=== PATIENT | female | born 1945 | race Caucasian/White ===

== ENCOUNTER → 2018-04-16 | Outpatient (CLI) | payer OTHER ==
--- NOTE | 2018-04-16 14:40 | Diagnostic Imaging Report ---
PROCEDURE:ULTRASOUND GUIDANCE FOR PROCEDURE COMPARISON:Outside mammogram and ultrasound studies from the [facility]. IMPRESSION:Ultrasound was utilized for guidance to perform fine needle aspiration of axillary lymph nodes and core biopsy of 2 breast masses. Andres Mckeon D.O. Dictated by: Andres Mckeon D.O. on 04/16/2018 at 14:50 Electronically approved by: Andres Mckeon D.O. on 04/16/2018 at 14:50
--- NOTE | 2018-04-17 08:21 | Diagnostic Imaging Report ---
THIS REPORT HAS BEEN AMENDED. #[id number] - BXBRADUSRT ULTRASOUND GUIDED BIOPSY: 04/16/2018 PATIENT CONSENT: According to [facility] requirements, a time out was performed, correct site was localized and the patient was consented. PROCEDURE DESCRIPTION: Using sterile technique, 1% Lidocaine local anesthesia, and real time ultrasound guidance, the mass at 9 o'clock 5 cm from the nipple in the right breast was biopsied using a 14 ga core device. Five specimens were submitted for histology. A micromarker was placed at the biopsy site for future reference. A sterile bandage was applied at the entry site. The patient was sent for a post biopsy mammogram with no immediate complications noted. Correlation is made to exams dated: 04/02/2018 mammogram and 04/02/2018 ultrasound - [facility]. IMPRESSION: ULTRASOUND GUIDED BIOPSY Follow-up with ACR/ACS guidelines. Andres eric/armando:04/16/2018 16:52:42 Vp Director Of Creative Strategy: AGUSTINA BROWNE [facility], [facility] [id number] AMENDMENT: 04/25/2018 Andres Mckeon Jr., D.O. The mass at the 9 o'clock position 3-5 cm from the nipple is positive for inflitrating ductal carcinoma. The mass at the 9 o'clock position 7 cm from the nipple is positive for infiltrating carcinoma. Fine needle aspiration biopsies of the abnormal lymph nodes in the right axilla are positive for malignancy.
--- NOTE | 2018-04-17 08:21 | Diagnostic Imaging Report ---
THIS REPORT HAS BEEN AMENDED. #[id number] - [id number] ULTRASOUND GUIDED BIOPSY: 04/16/2018 PATIENT CONSENT: According to [facility] requirements, a time out was performed, correct site was localized and the patient was consented. PROCEDURE DESCRIPTION: Using sterile technique, 1% Lidocaine local anesthesia, and real time ultrasound guidance, the mass at 9 o'clock 3 cm from the nipple in the right breast was biopsied using a 14 ga core device. Four specimens were submitted for histology. A micromarker was placed at the biopsy site for future reference. A sterile bandage was applied at the entry site. The patient was sent for a post biopsy mammogram with no immediate complications noted. Correlation is made to exams dated: 04/02/2018 mammogram and 04/02/2018 ultrasound - [facility]. IMPRESSION: ULTRASOUND GUIDED BIOPSY Follow-up with ACR/ACS guidelines. Andres eric/armando:04/16/2018 16:51:15 Brine Tank Operator: AGUSTINA BROWNE [facility], [facility] [id number] AMENDMENT: 04/25/2018 Andres Mckeon Jr., D.O. The mass at the 9 o'clock position 3-5 cm from the nipple is positive for inflitrating ductal carcinoma. The mass at the 9 o'clock position 7 cm from the nipple is positive for infiltrating carcinoma. Fine needle aspiration biopsies of the abnormal lymph nodes in the right axilla are positive for malignancy.
--- NOTE | 2018-04-17 08:21 | Diagnostic Imaging Report ---
#[id number] - [id number] #UNILATERAL RIGHT DIGITAL DIAGNOSTIC MAMMOGRAM POST-NEEDLE BIOPSY: 04/16/2018 Comparison is made to exams dated: 04/16/2018 ultrasound biopsy, 04/16/2018 ultrasound biopsy - [facility], 04/02/2018 mammogram and 04/02/2018 ultrasound - [facility]. Current study contains 2 films. The tissue of the right breast is predominantly fatty. There are two tissue marker clips present. No significant masses, calcifications, or other findings are seen in the breast. IMPRESSION: HIGHLY SUGGESTIVE OF MALIGNANCY Follow-up with ACR/ACS guidelines. Andres Turbeville Jr. George cw/:04/16/2018 16:55:52 Knotter: Leeann LOPEZ(Analisa)(M), [facility] Mammogram BI-RADS: 5 Highly suggestive of malignancy
== END ==
LOC: US 11:54
PROVIDERS: ATTEND Surgery
DX: N63.10 Unspecified lump in the right breast, unspecified quadrant (principal); C50.211 Malignant neoplasm of upper-inner quadrant of right female breast; C77.3 Secondary and unspecified malignant neoplasm of axilla and upper limb lymph nodes
CPT/HCPCS: 10022; 19083; 19084; 38505; 76942; 77065; 88172; 88173; 88305; A4648 ×2; 88112

== ENCOUNTER → 2018-05-16 | Day surgery (SDC) | payer OTHER ==
[2018-05-12 12:15] LABS: BASOPHILS # (AUTO) 0.1 (0.0-0.1); EOSINOPHILS # (AUTO) 0.2 (0.0-0.4); EOSINOPHILS % 3.2 % (0.0-6.0); HEMATOCRIT 32.8 % (34.2-44.1); HEMOGLOBIN 10.2 g/dL (12.0-16.0); LYMPHOCYTES # (AUTO) 1.7 (1.0-3.2); MEAN CORPUSCULAR HEMOGLOBIN 24.2 pg (28-32); MEAN CORPUSCULAR HGB CONC 31.1 g/dL (31-35); MEAN CORPUSCULAR VOLUME 77.9 fL (81-99); MONOCYTES # (AUTO) 0.6 (0.2-0.8); MONOCYTES % 7.7 % (4.4-11.3); NEUTROPHILS # (AUTO) 4.7 (2.1-6.9); NEUTROPHILS % 64.8 % (38.7-80.0); PLATELET COUNT 354 x10e3/uL (140-360); RED BLOOD COUNT 4.21 x10e6/uL (3.6-5.1); RED CELL DISTRIBUTION WIDTH 14.4 % (11.7-14.4)
[2018-05-12 12:28] LABS: ANION GAP 12.5 mmol/L (8-16); BLOOD UREA NITROGEN 20 mg/dL (7-26); BUN/CREATININE RATIO 25 (6-25); CALCIUM 9.2 mg/dL (8.4-10.2); CARBON DIOXIDE 24 mmol/L (22-29); CHLORIDE 105 mmol/L (98-107); CREATININE, SERUM 0.79 mg/dL (0.57-1.11); EST GLOMERULAR FILTRATION RATE > 60 ML/MIN (60-); GLUCOSE 91 mg/dL (74-118); POTASSIUM 4.5 mmol/L (3.5-5.1); SODIUM 137 mmol/L (136-145)
--- NOTE | 2018-05-12 12:32 | Diagnostic Imaging Report ---
ADDENDUM #1 ADDENDUM: Reason for exam: Pre-operative chest radiograph prior to port placement. Signed by: Dr. Williams Warren MD on 05/14/2018 5:38 PM ORIGINAL REPORT EXAMINATION: CHEST 2 VIEWS COMPARISON: None FINDINGS: TUBES and LINES: None. LUNGS: Lungs are well inflated. There is no evidence of pneumonia or pulmonary edema. PLEURA: No pleural effusion or pneumothorax. HEART AND MEDIASTINUM: The cardiomediastinal silhouette is unremarkable. Atherosclerotic aortic calcifications. Moderate hiatal hernia. BONES AND SOFT TISSUES: No acute osseous lesion. Soft tissues are unremarkable. UPPER ABDOMEN: No free air under the diaphragm. IMPRESSION: No acute radiographic abnormality. Moderate hiatal hernia. Signed by: Dr. Williams Warren MD on 05/12/2018 12:29 PM
[~2018-05-16] MED LIST: BACITRACIN 50,000 UNIT VIAL ONE; CEFAZOLIN SOD 1 GM/D5W 50ML 50 ML IV ONE; DEXAMETHASONE SOD PHOS INJ 4 MG/ML VIAL ONE; FENTANYL CITRATE/PF 100MCG/2 ML INJ ONE; HEPARIN SOD (PORCINE) 5,000 UNIT/ML VIAL ONE; LIDOCAINE HCL 2% LOCAL INJ 5 ML SDV VIAL INJ ONE; MIDAZOLAM HCL 2 MG/2 ML VIAL ONE; ONDANSETRON HCL INJ 2 MG/ML VIAL ONE; PROPOFOL IV EMULSION 10 MG/ML 20 ML VIAL ONE; SEVOFLURANE INHAL SOLN 250 ML PEN BTL ONE; SODIUM CHLORIDE 0.9% 500ML 500 ML ONE
--- OUTSIDE RECORDS SUMMARY | 2018-05-16 05:53 | XMS REPORT ---
Author Author [facility] Address Unknown Phone Unavailable Care Team Providers Care Financial Planner Name Role Phone ISMAEL RESENDEZ Unavailable Unavailable Problems This patient has no known problems. Allergies, Adverse Reactions, Alerts This patient has no known allergies or adverse reactions. Medications This patient has no known medications. Results Test Description Test Time Test Comments Text Results Atomic Results Result Comments CHEST 2 VIEWS 2018-05-12 12:27:00 [place] [address] Patient Name: MAGEN SALMON MR #: [id number] : 1945 Age/Sex: 72/F Req #: [id number] Adm Physician: Ordered by: ISMAEL RESENDEZ MD Report #: [id number] Location: OR Room/Bed: Procedure: [id number] DX/CHEST 2 VIEWS Exam Date: 05/12/18 Exam Time: 1213 REPORT STATUS: Signed ADDENDUM #1 ADDENDUM: Reason for exam: Pre-operative chest radiograph prior to port placement. Signed by: Dr. Michael Granados MD on 05/14/2018 5:38 PM ORIGINAL REPORT EXAMINATION: CHEST 2 VIEWS COMPARISON: None FINDINGS: TUBES and LINES: None. LUNGS: Lungs are well inflated. There is no evidence of pneumonia or pulmonary edema. PLEURA: No pleural effusion or pneumothorax. HEART AND MEDIASTINUM: The cardiomediastinal silhouette is unremarkable. Atherosclerotic aortic calcifications. Moderate hiatal hernia. BONES AND SOFT TISSUES: No acute osseous lesion. Soft tissues are unremarkable. UPPER ABDOMEN: No free air under the diaphragm. IMPRESSION: No acute radiographic abnormality. Moderate hiatal hernia. Signed by: Dr. Michael Granados MD on 05/12/2018 12:29 PM Dictated By: MICHAEL GRANADOS MD 1754 Transcribed By: RADHA on 05/12/18 1229 COPY TO: ISMAEL RESENDEZ MD MAMMOGRAPHY DIGITAL DX UNI RT 2018-04-16 15:41:00 [place] [address] Patient Name: MAGEN SALMON MR #: [id number] : 1945 Age/Sex: 72/F Req #: [id number] Adm Physician: Ordered by: ISMAEL RESENDEZ MD Report #: [id number] Location: Room/Bed: Procedure: [id number] MG/MAMMOGRAPHY DIGITAL DX UNI RT Exam Date: 04/16/18 Exam Time: 1300 REPORT STATUS: Signed #[id number] - [id number] #UNILATERAL RIGHT DIGITAL DIAGNOSTIC MAMMOGRAM POST-NEEDLE BIOPSY: 04/16/2018 Comparison is made to exams dated: 04/16/2018 ultrasound biopsy, 04/16/2018 ultrasound biopsy - [facility], 04/02/2018 mammogram and 04/02/2018 ultrasound - [facility]. Current study contains 2 films. The tissue of the right breast is predominantly fatty. There are two tissue marker clips present. No significant masses, calcifications, or other findings are seen in the breast. IMPRESSION: HIGHLY SUGGESTIVE OF MALIGNANCY Follow-up with ACR/ACS guidelines. Ramón Mckeon Jr., D.O. cw/:04/16/2018 16:55:52 Director Search: Leeann LOPEZ (R)(Juan), [facility] Mammogram BI-RADS: 5 Highly suggestive of malignancy Dictated By: RAMÓN MCKEON DO 54 Transcribed By: MEME on 04/16/181654 COPY TO: ISMAEL RESENDEZ MD BX BRST 1ST LESION US IMAG-RT 2018-04-16 15:40:00 [place] [address] Patient Name: MAGEN SALMON MR #: [id number] : 1945 Age/Sex: 72/F Req #: [id number] Adm Physician: Ordered by: ISMAEL RESENDEZ MD Report #: [id number] Location: US Room/Bed: Procedure: [id number] US/BX BRST 1ST LESION US IMAG-RT Exam Date: Exam Time: REPORT STATUS: Signed THIS REPORT HAS BEEN AMENDED. #[id number] - [id number] ULTRASOUND GUIDED BIOPSY: 04/16/2018 PATIENT CONSENT: According to [facility] requirements, a time out was performed, correct site was localized and the patient was consented. PROCEDURE DESCRIPTION: Using sterile technique, 1% Lidocaine local anesthesia, and real time ultrasound guidance, the mass at 9 o'clock 3 cm from the nipple in the right breast was biopsied using a 14 ga core device. Four specimens were submitted for histology. A BevyUper was placed at the biopsy site for future reference. A sterile bandage was applied at the entry site. The patient was sent for a post biopsy mammogram with no immediate complications noted. Correlation is made to exams dated: 04/02/2018 mammogram and 04/02/2018 ultrasound - [facility]. IMPRESSION: ULTRASOUND GUIDED BIOPSY Follow-up with ACR/ACS guidelines. Ramón eric/meme:04/16/2018 16:51:15 Director Search: AGUSTINA BROWNE [facility], [facility] [id number] AMENDMENT: 04/25/2018 Ramón Mckeon Jr., D.O. The mass at the 9 o'clock position 3-5 cm from the nipple is positive for inflitrating ductal carcinoma. The mass at the 9 o'clock position 7 cm from the nipple is positive for infiltrating carcinoma. Fine needle aspiration biopsies of the abnormal lymph nodes in the right axilla are positive for malignancy. Dictated By: RAMÓN MCKEON DO 1651 Transcribed By: MEME on 04/25/18 6351 COPY TO: ISMAEL RESENDEZ MD BX BRST ADD LESION US IMAG-RT 2018-04-16 15:15:00 [facility] [address] [place] [address] Patient Name: MAGEN SALMON MR #: [id number] : 1945 Age/Sex: 72/F Req #: [id number] Adm Physician: Ordered by: ISMAEL RESENDEZ MD Report #: [id number] Location: Room/Bed: Procedure: [id number] US/BX BRST ADD LESION US IMAG-RT Exam Date: Exam Time: REPORT STATUS: Signed THIS REPORT HAS BEEN AMENDED. #[id number] - BXBRADUSRT ULTRASOUND GUIDED BIOPSY: 04/16/2018 PATIENT CONSENT: According to [facility] requirements, a time out was performed, correct site was localized and the patient was consented. PROCEDURE DESCRIPTION: Using sterile technique, 1% Lidocaine local anesthesia, and real time ultrasound guidance, the mass at 9 o'clock 5 cm from the nipple in the right breast was biopsied using a 14 ga c ore device. Five specimens were submitted for histology. A micromarker was placed at the biopsy site for future reference. A sterile bandage was applied at the entry site. The patient was sent for a post biopsy mammogram with no immediate complications noted. Correlation is made to exams dated: 04/02/2018 mammogram and 04/02/2018 ultrasound - [facility]. IMPRESSION: ULTRASOUND GUIDED BIOPSY Follow-up with ACR/ACS guidelines. Ramón Mckeon Jr., D.O. cw/meme:04/16/2018 16:52:42 Director Search: AGUSTINA BROWNE [facility], [facility] [id number] AMENDMENT: 04/25/2018 Ramón Mckeon Jr., D.O. The mass at the 9 o'clock position 3-5 cm from the nipple is positive for inflitrating ductal carcinoma. The mass at the 9 o'clock position 7 cm from the nipple is positive for infiltrating carcinoma. Fine needle aspiration biopsies of the abnormal lymph nodes in the right axilla are positive for malignancy. Dictated By: RAMÓN MCKEON DO 1652 Transcribed By: MEME on 04/25/18 5633 COPY TO: ISMAEL RESENDEZ MD US GUIDANCE FOR PROCEDURE 2018-04-16 14:50:00 [place] [address] Patient Name: MAGEN SALMON MR #: [id number] : 1945 Age/Sex: 72/F Req #: [id number] Adm Physician: Ordered by: ISMAEL RESENDEZ MD Report #: [id number] Location: US Room/Bed: Procedure: [id number] US/US GUIDANCE FOR PROCEDURE Exam Date: Exam Time: REPORT STATUS: Signed PROCEDURE: ULTRASOUND GUIDANCE FOR PROCEDURE COMP ARISON: Outside mammogram and ultrasound studies from the [facility]. IMPRESSION: Ultrasound was utilized for guidance to perform fine needle aspiration of axillary lymph nodes and core biopsy of 2 breast masses. Ramón Mckeon D.O. Dictated by: Ramón Mckeon D.O. on 04/16/2018 at 14:50 Electronically approved by: Ramón Mckeon D.O. on 04/16/2018 at 14:50 Dictated By: RAMÓN MCKEON DO 1450 Transcribed By: RICK on 04/16/18 1450 COPY TO: ISMAEL RESENDEZ MD BREAST ULTRASOUND BILATERAL 2018-04-02 11:49:58 - DIAG MAMM BILATERAL COLTON CAD DIGITALBILATERAL DIGITAL DIAGNOSTIC MAMMOGRAM 3D/2D WITH CAD: 04/02/2018CLINICAL: Palpable mass, right breast. Digital breast tomosynthesis was performed in addition to routine CC and MLO views. Current mammographic images were evaluated by either a [email or web address] M-Vu or a [employer] ImageChecker CAD (computer aided detection system). No prior exams were available for comparis on. There are scattered fibroglandular tissues in both breasts. Right breast irregular mass with spiculated margins measuring 33 mm is present at 9 o'clock at a distance of 7 cm from the nipple at the site of palpable marker.There are otherwise bilateral scattered similar-appearing oval circumscribed masses.Right axillary lymphadenopathy is present.INCOMPLETE ASSESSMENT: ADDITIONAL IMAGING EVALUATION RECOMMENDEDRIGHT BREAST irregular mass measuring 33 mm at o'clock at a distance of 7 cm from nipple. Same day ultrasound to follow.RIGHT AXILLA lymphadenopathy. Same day ultrasound to follow.- BREAST ULTRASOUND BILATERALULTRASOUND OF BOTH BREASTS: 04/02/2018No prior exams were available for comparison. Ultrasound of both breasts was performed. Rodriguez scale images of the real-time examination were reviewed. Ultrasound demonstrates right breast irregular mass with spiculated margins measuring 33 x 28 x 28 mm at the site of clinically palpable and mammographic mass at 9 o'clock, at a distance of 7 cm from the nipple.Ultrasound demonstrates right breast similar appearing satellite mass measuring 12 x 6 x 12 mm at 9 o'clock, at a distance of 5 cm from nipple, located 17 mm away from the index mass.Ultrasound of the right axilla demonstrates morphologically abnormal lymph nodes with the largest measuring 16 mm.Survey ultrasound of the remaining right and left breast demonstrates scattered simple cysts at the sites of mammographic oval masses.IMPRESSION: HIGHLY SUGGESTIVE OF MALIGNANCY - FOLLOW-UP RECOMMENDEDRIGHT BREAST: Irregular mass measuring 33 mm on ultrasound at 9 o'clock, 7 cm from nipple. Ultrasound guided biopsy is recommended at this time. Satellite mass measuring 12 mm on ultrasound at 9 o'clock, 5 cm from nipple, located 17 mm away from the index mass. Ultrasound guided biopsy is recommended at this time.Axillary lymphadenopathy. Ultrasound guided biopsy is recommended at this time.LEFT BREAST: Benign, no evidence of malignancy.Jon Lai M.D. qn/:04/02/2018 11:49:58 Director Search: Carrie HIGGINS, [facility]-FWletter sent: BIRADS 4/5 Biopsy Mammogram BI-RADS: 0 Indeterminate Ultrasound BI-RADS: 5 Highly suggestive of malignancy DIAG MAMM BILATERAL COLTON CAD DIGITAL 2018-04-02 11:49:58 - DIAG MAMM BILATERAL COLTON CAD DIGITALBILATERAL DIGITAL DIAGNOSTIC MAMMOGRAM 3D/2D WITH CAD: 04/02/2018CLINICAL: Palpable mass, right breast. Digital breast tomosynthesis was performed in addition to routine CC and MLO views. Current mammographic images were evaluated by either a [email or web address] M-Vu or a [employer] ImageChecker CAD (computer aided detection system). No prior exams were available for comparis on. There are scattered fibroglandular tissues in both breasts. Right breast irregular mass with spiculated margins measuring 33 mm is present at 9 o'clock at a distance of 7 cm from the nipple at the site of palpable marker.There are otherwise bilateral scattered similar-appearing oval circumscribed masses.Right axillary lymphadenopathy is present.INCOMPLETE ASSESSMENT: ADDITIONAL IMAGING EVALUATION RECOMMENDEDRIGHT BREAST irregular mass measuring 33 mm at o'clock at a distance of 7 cm from nipple. Same day ultrasound to follow.RIGHT AXILLA lymphadenopathy. Same day ultrasound to follow.- BREAST ULTRASOUND BILATERALULTRASOUND OF BOTH BREASTS: 04/02/2018No prior exams were available for comparison. Ultrasound of both breasts was performed. Rodriguez scale images of the real-time examination were reviewed. Ultrasound demonstrates right breast irregular mass with spiculated margins measuring 33 x 28 x 28 mm at the site of clinically palpable and mammographic mass at 9 o'clock, at a distance of 7 cm from the nipple.Ultrasound demonstrates right breast similar appearing satellite mass measuring 12 x 6 x 12 mm at 9 o'clock, at a distance of 5 cm from nipple, located 17 mm away from the index mass.Ultrasound of the right axilla demonstrates morphologically abnormal lymph nodes with the largest measuring 16 mm.Survey ultrasound of the remaining right and left breast demonstrates scattered simple cysts at the sites of mammographic oval masses.
[2018-05-16 09:40] VITALS: BP 151/89
--- NOTE | 2018-05-16 09:45 | Diagnostic Imaging Report ---
EXAM: CHEST SINGLE (PORTABLE), AP Portable DATE: 05/16/2018Time stamp on exam: 9:09 AM INDICATION: Status post chest port placement; history of breast cancer COMPARISON: None FINDINGS: LINES/TUBES: Left chest wall subclavian approach chest port has been placed. LUNGS: No consolidations or edema. PLEURA: No pneumothorax. HEART AND MEDIASTINUM: Normal size and contour. Calcification within the aortic knob. BONES AND SOFT TISSUES: No acute findings. IMPRESSION: 1. No acute thoracic abnormality. 2. Left chest wall chest port in appropriate position. Signed by: Dr. Andres Mckeon DO on 05/16/2018 9:42 AM
--- NOTE | 2018-05-16 10:38 | Operative Report ---
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 PROCEDURE PERFORMED: Placement of left subclavian Port-A-Cath system. ANESTHESIA: General. ESTIMATED BLOOD LOSS: Minimal. DRAINS: None. COMPLICATIONS: None. INDICATIONS AND FINDINGS: The patient is a pleasant but unfortunate 72-year-old female who was found to have cancer of the right breast. Needle biopsies reveal locally advanced cancer of the right breast with satellite lesion and metastasis to the right axilla. Patient evaluated by oncology and a Port-A-Cath was requested for preoperative chemotherapy. INTRAOPERATIVE FINDINGS: A Bard subclavian port was placed, lot number [id number]. This was placed using Seldinger technique under fluoroscopic control. At the end of the case, there was no evidence of pneumothorax. The tip of the catheter was laid in the right atrial region. DESCRIPTION OF PROCEDURE: With the patient on the operative table in the supine position. After administration of general endotracheal anesthesia, she was prepped and draped for Port-A-Cath placement on the left pectoral region. After prepping and draping and positioning her, the left subclavian vein was percutaneously cannulized. Guidewire introduced. Fluoroscopy revealed the guidewire was going into the great vessels of the heart in the area of the superior vena cava. After we did that, we then created a pocket using blunt dissection to accommodate the port, making an incision across the entrance of the guidewire into the chest. The dissection was carried down through the pectoral fascia and then a pocket was created in blunt dissection to accommodate the port. The port was connected to the self-locking mechanism and cut to lay about in the area of superior vena cava, right atrial junction, about 17.5 to 18 cm. After we did that, we went ahead and dilated the guidewire tract, placed the sheath and then we peeled away the sheath and introduced the catheter into the right atrial, superior vena cava junction as we pulled away the sheath. After we finished placing the system, there was good blood flow, return and irrigation. The catheter was irrigated with heparinized solution and then secured to the local tissues with three interrupted 2-0 silks to prevent migration. The wound irrigated with Bacitracin containing solution. Then the wound was closed using 2-0 Vicryl for the soft tissues and the skin was closed using subcuticular 4-0 Vicryl. Steri-Strip was applied. The patient tolerated the procedure well, was taken to the recovery room in stable condition. The family informed of the intraoperative findings. She knows she would be following up with oncology and once her chemotherapy course, which is supposed to last approximately 6 months, she will be coming back to the office for right modified radical mastectomy and possibly prophylactic left mastectomy if so desired. Job#: [id number] MARY ANN
== END | disposition home or self-care (01) ==
LOC: OR 05:51
PROVIDERS: ATTEND Surgery
DX: C50.911 Malignant neoplasm of unspecified site of right female breast (principal); D64.9 Anemia, unspecified; C77.3 Secondary and unspecified malignant neoplasm of axilla and upper limb lymph nodes; Z01.810 Encounter for preprocedural cardiovascular examination; Z01.812 Encounter for preprocedural laboratory examination; Z01.818 Encounter for other preprocedural examination; Z87.891 Personal history of nicotine dependence
CPT/HCPCS: 36415; 36561; 71046; 77001; 80048; 85025; 93005; C1751; J0690; J1100; J1644; J2001; J2250; J2405; J2704; J7040; 71045

== ENCOUNTER 2019-02-05 17:12 | Emergency (ER) | payer OTHER ==
[~2019-02-05] VITALS: Ht 160 cm; Wt 83.9 kg
--- OUTSIDE RECORDS SUMMARY | 2019-02-05 17:15 | XMS REPORT | Clinical Summary ---
Author Author [facility] Organization [facility] Address Unknown Phone Unavailable Care Team Providers Care Wood Carver Name Role Phone Omar Sheth MD PCP Allergies No Known Allergies Medications End Date Status Medication Sig Dispensed Refills Start Date 12/16/2018 Discontinued (Stop Taking at Discharge) acetaminophen (TYLENOL) Take 325 mg 0 325 MG tablet by mouth every 6 (six) hours as needed for fever. Active Problems Not on file Encounters Care Team Description Date Type Specialty Steven Rueda MD Carter, [place] Dionne 12/16/2018 Anesthesia General Surgery Event Radha Rico MD BILATERAL SIMPLE MASTECTOMY, MULTIPLE INTERCOSTAL BLOCKS, BILATERAL AXILLARY SENTINEL LYMPH NODE BIOPSY W/ INJECTION OF METHYLENE BLUE AND PREINTERPRETATION OF FAXITRON IMAGE, FROZEN SECTION AND RIGHT PARTIAL AXILLAERY DISECTION 12/16/2018 Surgery General Surgery Radha Rico MD Malignant neoplasm of right female breast, unspecified estrogen receptor status, unspecified site of breast (HCC) 12/16/2018 Hospital Radiology Encounter Radha Rico MD Preop testing 12/16/2018 Hospital General Surgery Encounter Radha Rico MD Abnormal findings on diagnostic imaging of breast 12/15/2018 Hospital Radiology Encounter Radha Rico MD Abnormal findings on diagnostic imaging of breast 12/15/2018 Hospital Radiology Encounter Radha Rico MD 12/12/2018 Hospital Radiology Encounter Radha Rico MD Preop testing (Primary Dx) 12/12/2018 Pre-Admit Pre-Admission Testing Testing Appointment Radha Rico MD 12/11/2018 Hospital Radiology Encounter Radha Rico MD 12/11/2018 Hospital Radiology Encounter Radha Rico MD Abnormal findings on diagnostic imaging of breast (Primary Dx) 12/11/2018 Transcribe Access Orders Radha Rico MD 12/09/2018 Hospital Radiology Encounter Radha Rico MD 12/09/2018 Hospital Radiology Encounter Radha Rico MD 12/09/2018 Hospital Radiology Encounter Radha Rico MD 12/09/2018 Hospital Radiology Encounter Fany Quiles 12/09/2018 Telephone Radiology Radha Rico MD Malignant neoplasm of right female breast, unspecified estrogen receptor status, unspecified site of breast (HCC) (Primary Dx) 12/08/2018 Transcribe Access Orders after 02/04/2018 Family History Medical History Relation Name Comments Stroke Brother Heart disease Father Stroke Father Diabetes Mother Cancer Sister Relation Name Status Comments Brother Father Mother Sister Social History Date Tobacco Use Types Packs/Day Years Used Never Smoker Smokeless Tobacco: Never Used Drinks/Week oz/Week Comments Alcohol Use Not Currently Sex Assigned at Date Recorded Not on file Industry Job Start Date Occupation Not on file Not on file Not on file Travel End Travel History Travel Start No recent travel history available. Last Filed Vital Signs Reading Time Taken Comments Vital Sign 128/60 12/16/2018 9:12 PM CDT Blood Pressure 85 12/16/2018 9:12 PM CDT Pulse 36.2 C (97.2 F) 12/16/2018 8:30 PM CDT Temperature 20 12/16/2018 9:12 PM CDT Respiratory Rate 95% 12/16/2018 9:12 PM CDT Oxygen Saturation - - Inhaled Oxygen Concentration 73 kg (161 lb) 12/16/2018 12:35 PM CDT Weight 160 cm (5' 3") 12/16/2018 12:35 PM CDT Height 28.52 12/16/2018 12:35 PM CDT Body Mass Index Plan of Treatment Health Maintenance Due Date Last Done Comments COLONOSCOPY SCREENING 10/07/1997 SHINGLES VACCINES (#1) 10/07/1997 65+ PNEUMOCOCCAL VACCINE 10/07/2012 (1 of 2 - PCV13) INFLUENZA VACCINE 12/11/2018 BREAST CANCER SCREENING 12/15/2020 12/15/2018 Implants Device Identifier Shelf Expiration Date Model / Serial / Lot Implanted Type Area Manufactur er 09/09/2020 [id number] / [id number] / [id number] Allograft Alloderm Tissue Skin 10.7 Human Right: Breast LIFECELL X 21.5cm Countour Large - Tissue CORPORATIO [id number] - [id number] Implants N Implanted: Qty: 1 on 12/16/2018 by Radha Rico MD at [facility] 12/11/2019 [id number] / [id number] / [id number] Alloderm Contour Medium Thick Human Right: Breast LIFECELL Perforated Rtu 9.6cm X 19.3cm - Tissue CORPORATIO [id number] - [id number] Implants N Implanted: Qty: 1 on 12/16/2018 by Radha Rico MD at [facility] 08/10/2020 [id number] / [id number] / [id number] Tissue Alloderm Allograft 2.0-2.8mm Human Left: Breast LIFECELL Lg Perf Thick - Sna - [id number] Tissue CORPORATIO Implanted: Qty: 1 on 12/16/2018 by Implants N Radha Rico MD at [facility] 08/24/2022 [id number] / [id number] / [id number] Dimmer Board Operator Brst Tiss Cpx4 Medium Plastic or Right: Breast MENTOR Height 450cc - [id number] - Cosmetic WORLDWIDE, [id number] Implants LLC Implanted: Qty: 1 on 12/17/2018 by or Radha Snyder MD at [facility] [place] or Sets 08/24/2022 [id number] / [id number] / [id number] Dimmer Board Operator Brst Tiss Cpx4 Medium Plastic or Left: Breast MENTOR Height 450cc - [id number] - Cosmetic WORLDWIDE, [id number] Implants LLC Implanted: Qty: 1 on 12/17/2018 by or Radha Snyder MD at [facility] [place] or Sets [id number] / / Television Cabinet Finisher Mltpl Clip Ligaclip Ligtng Surgical Breast ETHICON 20 Clips 29.2cm Med Ti - [id number] Implants; ENDO Implanted: Qty: 1 on 12/16/2018 by Expanders; [facility] Surgical Wires Procedures Comments Procedure Name Priority Date/Time Associated Diagnosis SURGICAL PATHOLOGY Routine 12/16/2018 REQUEST 3:37 PM CDT SC AN ELECTIVE Routine 12/16/2018 ENDOTRACHEAL AIRWAY 2:51 PM CDT Procedure Note - Steven Rueda MD - 12/16/2018 2:51 PM CDT Airway Performed by: Manda Winston Authorized by: Steven Rueda MD Location: OR Urgency: Elective Difficult Airway: No Anesthesio logist: Steven Rueda MD Preoxygena kailee with 100% O2: Yes Mask Ventilatio n: Easy mask (90 mm oral airway) Final Airway Type: Endotrache al airway Final Endotrache al Airway: ETT Cuffed: Yes Technique Used: Direct laryngosco py Devices/Me thods Used in Placement: Intubatin g stylet Insertion Site: Oral Blade Type: Massey Laryngosco pe Blade/Vide olaryngosc ope Blade Size: 2 ETT Size (mm): 6.5 Measured from: Gums ETT to Gums (cm): 21 Placement Verified by: CO2 detection, direct visualizat ion and equal breath sounds Laryngosco pic view: Grade IIa - partial view of glottis Rapid Sequence Induction (RSI): No Modified RSI: No Number of Attempts at Approach: 1 REVISION, RECONSTRUCTION, 12/16/2018 RIGHT BREAST CANCER BREAST 2:26 PM CDT C50.111, C77.3 Special Needs Tissue cpx4 expanders are on implant cart: need Alloderm - large x 2 BIOPSY, LYMPH NODE, 12/16/2018 RIGHT BREAST CANCER SENTINEL 2:26 PM CDT C50.111, C77.3 Special Needs Tissue cpx4 expanders are on implant cart: need Alloderm - large x 2 BREAST SPECIMEN Routine 12/16/2018 2:14 PM CDT NM INJECT SULFUR COLLOID Routine 12/16/2018 Malignant neoplasm of LYMPH 12:11 PM CDT right female breast, unspecified estrogen receptor status, unspecified site of breast (HCC) US AXILLA RIGHT Routine 12/15/2018 Abnormal findings on 11:05 AM CDT diagnostic imaging of breast MAMMO BREAST DIAGNOSTIC Routine 12/15/2018 Abnormal findings on TOMOSYNTHESIS RIGHT 10:01 AM CDT diagnostic imaging of breast XR CHEST 2 VW Routine 12/12/2018 Preop testing 2:58 PM CDT ESTIMATED GFR Routine 12/12/2018 2:30 PM CDT COMPREHENSIVE METABOLIC Routine 12/12/2018 Preop testing PANEL 2:30 PM CDT HC COMPLETE BLD COUNT Routine 12/12/2018 Preop testing W/AUTO DIFF 2:30 PM CDT ECG 12-LEAD Routine 12/12/2018 Preop testing 2:29 PM CDT US BREAST EXTERNAL STUDY Routine 11/06/2018 2:11 PM CDT US BREAST EXTERNAL STUDY Routine 07/15/2018 2:11 PM NECKTIES PAINTER US BREAST EXTERNAL STUDY Routine 04/16/2018 3:03 PM NECKTIES PAINTER MAMMO EXTERNAL STUDY Routine 04/16/2018 3:02 PM NECKTIES PAINTER US BREAST EXTERNAL STUDY Routine 04/02/2018 2:11 PM NECKTIES PAINTER after 02/04/2018 Results * Surgical pathology request (12/16/2018 3:37 PM CDT) [facility] DEPARTMENT OF PATHOLOGY AND GENOMIC MEDICINE Surgical See link below for PDF Lab [facility] pathology Report DEPARTMENT OF report PATHOLOGY AND GENOMIC MEDICINE Result status This is Final Report for [facility] [id number] DEPARTMENT OF PATHOLOGY AND GENOMIC MEDICINE Specimen Performing Organization Address City/State/Zipcode Phone Number [facility] [place] [address] [place] [address] PATHOLOGY AND GENOMIC MEDICINE * Breast Specimen (12/16/2018 2:14 PM CDT) Specimen Narrative Performed At EXAMINATION:BREAST SPECIMEN12/16/2018 2:12 PM [facility] IMPRESSION: Intra-operative digital Faxitron breast specimen radiography was provided for the surgeon by [facility]. A radiologist was not contacted or involved in the interpretation of the images. Please see the surgical operative and/or pathology note for further information and image interpretation. [email or web address] Performing Organization Address City/[facility] Phone Number [facility] [address] [place] [address] * NM Inject Sulfur Colloid Lymph (12/16/2018 12:11 PM CDT) Specimen Narrative Performed At EXAMINATION:NM INJECT SULFUR COLLOID [facility]H [facility] CLINICAL [facility]:C50.911 Malignant neoplasm of unspecified site of right female breast, r breast ca COMPARISON:None. FINDINGS: 662 uCi technetium 99m filter sulfur colloid was injected intradermally in the left breast in a circumareolar fashion following injection of local anesthesia 731 uCi technetium 99m filter sulfur colloid was injected intradermally in the right breast in a circumareolar fashion following injection of local anesthesia IMPRESSION: Bilateral breast sentinel node injection [id number] Procedure Note [facility], Radiology Results Incoming - 12/16/2018 5:14 PM CDT EXAMINATION: NM INJECT SULFUR COLLOID LYMPH CLINICAL HISTORY: C50.911 Malignant neoplasm of unspecified site of right female breast, r breast ca COMPARISON: None. FINDINGS: 662 uCi technetium 99m filter sulfur colloid was injected intradermally in the left breast in a circumareolar fashion following injection of local anesthesia 731 uCi technetium 99m filter sulfur colloid was injected intradermally in the right breast in a circumareolar fashion following injection of local anesthesia IMPRESSION: Bilateral breast sentinel node injection [id number] Performing Organization Address [facility] Cent[facility]ode Phone Number JANETH [address] [place] [address] * US Axilla Right (12/15/2018 11:05 AM CDT) Specimen Narrative Performed At PROCED[facility]: [facility] DIAGNOSTIC TOMOSYNTHESIS RIGHT, US AXILLA RIGHT 12/15/2018 9:44 AM COMPARISON: Outside mammograms dated 03/2018 through 10/2018 and outside ultrasound dated 04/02/2018. TECHNIQUE: Digital right diagnostic mammography with tomosynthesis was performed and interpreted using computer-assisted detection. Hand-held high resolution sonographic images of the right axilla (level I) were obtained with color Doppler imaging as needed. 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 FINDINGS: MAMMOGRAM: The breast parenchyma is heterogeneously dense which may obscure small masses.There are no new suspicious masses, calcifications or distortions. There has been no significant interval change in the mammographic appearance of the right breast. A stable spiculated mass with associated marker clip in the posterior upper outer right breast denotes the site of known malignancy. An additional marker clip without associated suspicious findings in the 9 o'clock position 5 cm from the nipple denotes an additional site of known malignancy. A persistent 1.7 cm circumscribed mass in the upper inner right breast middle depth was previously found to represent a cyst on prior outside ultrasound. In the right axilla, a persistent 0.7 cm reniform shaped mass with associated distortion is seen previously measuring 1.1 cm in maximal dimension on prior mammogram performed July 2018. Additional axillary lymph node seen in the vicinity have decreased in size compared to pretreatment mammogram performed March 2018 consistent with treatment response. ULTRASOUND: Sonographic imaging of the right axilla demonstrates two adjacent similar appearing subcentimeter irregular hypoechoic hypervascular masses with one representing a likely sonographic correlate for the residual suspicious axillary mass with distortion seen by mammography. The largest measures 0.6 x 0.5 x 0.4 cm and appears to correspond to a suspicious lymph node demonstrated on prior ultrasound performed March 2018 where it measured 1.6 x 1.3 x 1.2 cm in maximal dimension. Approximately 0.9 cm inferior and lateral to this finding is the smaller similar appearing subcentimeter mass. This area was marked on the skin with ink and a BB was placed for correlation images which demonstrate concordance with the mammographic area of concern. Additional lymph nodes with preserved fatty rene and thin but markedly hypoechoic cortices are seen which likely correspond to the additional improved pathologic lymph nodes seen by mammography. IMPRESSION: 1. Persistent subcentimeter hypervascular right axillary adenopathy in this patient with biopsy-proven right axillary metastasis. There is no marker clip visible by mammography or sonography. A skin marking was made overlying the sonographic area of concern to assist with operative localization as the patient is pending mastectomy with sentinel lymph node biopsy tomorrow. Pertinent findings were discussed with Dr. Rico via telephone on 12/15/2018 at 11:12 AM. 2. Known multifocal right breast malignancy as above. BI-RADS Category 6. Known biopsy-proven malignancy. Findings and recommendations were discussed with the patient and her sister at the time of the examination. This facility is accredited by [employer] for Mammography. A negative x-ray report should not delay biopsy if a dominant or clinically suspicious mass is present. Not all cancers are identified by x-ray. [email or web address] Performing Organization Address City/State/Zipcode Phone Number [facility] [address] [place] [address] * Mammo Breast Diagnostic Tomosynthesis Right (12/15/2018 10:01 AM CDT) Specimen Narrative Performed At PROCEDURE: [facility] MAMMO BREAST DIAGNOSTIC TOMOSYNTHESIS RIGHT, US AXILLA RIGHT 12/15/2018 9:44 AM COMPARISON: Outside mammograms dated 03/2018 through 10/2018 and outside ultrasound dated 04/02/2018. TECHNIQUE: Digital right diagnostic mammography with tomosynthesis was performed and interpreted using computer-assisted detection. Hand-held high resolution sonographic images of the right axilla (level I) were obtained with color Doppler imaging as needed. 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 FINDINGS: MAMMOGRAM: The breast parenchyma is heterogeneously dense which may obscure small masses.There are no new suspicious masses, calcifications or distortions. There has been no significant interval change in the mammographic appearance of the right breast. A stable spiculated mass with associated marker clip in the posterior upper outer right breast denotes the site of known malignancy. An additional marker clip without associated suspicious findings in the 9 o'clock position 5 cm from the nipple denotes an additional site of known malignancy. A persistent 1.7 cm circumscribed mass in the upper inner right breast middle depth was previously found to represent a cyst on prior outside ultrasound. In the right axilla, a persistent 0.7 cm reniform shaped mass with associated distortion is seen previously measuring 1.1 cm in maximal dimension on prior mammogram performed July 2018. Additional axillary lymph node seen in the vicinity have decreased in size compared to pretreatment mammogram performed March 2018 consistent with treatment response. ULTRASOUND: Sonographic imaging of the right axilla demonstrates two adjacent similar appearing subcentimeter irregular hypoechoic hypervascular masses with one representing a likely sonographic correlate for the residual suspicious axillary mass with distortion seen by mammography. The largest measures 0.6 x 0.5 x 0.4 cm and appears to correspond to a suspicious lymph node demonstrated on prior ultrasound performed March 2018 where it measured 1.6 x 1.3 x 1.2 cm in maximal dimension. Approximately 0.9 cm inferior and lateral to this finding is the smaller similar appearing subcentimeter mass. This area was marked on the skin with ink and a BB was placed for correlation images which demonstrate concordance with the mammographic area of concern. Additional lymph nodes with preserved fatty rene and thin but markedly hypoechoic cortices are seen which likely correspond to the additional improved pathologic lymph nodes seen by mammography. IMPRESSION: 1. Persistent subcentimeter hypervascular right axillary adenopathy in this patient with biopsy-proven right axillary metastasis. There is no marker clip visible by mammography or sonography. A skin marking was made overlying the sonographic area of concern to assist with operative localization as the patient is pending mastectomy with sentinel lymph node biopsy tomorrow. Pertinent findings were discussed with Dr. Rico via telephone on 12/15/2018 at 11:12 AM. 2. Known multifocal right breast malignancy as above. BI-RADS Category 6. Known biopsy-proven malignancy. Findings and recommendations were discussed with the patient and her sister at the time of the examination. This facility is accredited by [employer] for Mammography. A negative x-ray report should not delay biopsy if a dominant or clinically suspicious mass is present. Not all cancers are identified by x-ray. [email or web address] Performing Organization Address City/State/Zipcode Phone Number [facility] [address] [place] [address] * XR Chest 2 Vw (12/12/2018 2:58 PM CDT) Specimen Narrative Performed At EXAMINATION:XR CHEST 2 VW [facility] CLINICAL HISTORY:Z01.818 Encounter for other preprocedural examination, preop IMPRESSION: There is a portable Central venous catheter in good position. There is a hiatus hernia present. Aorta is atherosclerotic. Heart size is normal. Lungs are clear. There are some compression fractures in the lower thoracic and upper lumbar region. [id number] Procedure Note Interface, Radiology Results Incoming - 12/12/2018 3:03 PM CDT EXAMINATION: XR CHEST 2 VW CLINICAL HISTORY: Z01.818 Encounter for other preprocedural examination, preop IMPRESSION: There is a portable Central venous catheter in good position. There is a hiatus hernia present. Aorta is atherosclerotic. Heart size is normal. Lungs are clear. There are some compression fractures in the lower thoracic and upper lumbar region. [id number] Performing Organization Address City/[facility]/Zipcode Phone Number JANETH [address] [place] [address] * Estimated GFR (12/12/2018 2:30 PM CDT) Estimated GFR 87 mL/min/1.73 m2 [place] Comment: [facility] rpretation G1 >=90 Normal or high G2 60-89Mildly decreased [id number] Mildly to moderately decreased T5w27-09 Moderately to severely decreased G4 15-29Severely decreased G5 <15Kidney failure The eGFR was calculated using the Chronic Kidney Disease Epidemiology Collaboration (CKD-EPI) equation. Interpretation is based on recommendations of the National Kidney Foundation-Kidney Disease Outcomes Quality Initiative (NKF-KDOQI) published in 2014. Specimen Plasma specimen Performing Organization Address [facility] Cent[facility]ode [place] [address] [address] [place] [id number] PATHOLOGY AND GENOMIC MEDICINE [facility] [address] [address] [place] [phone] [facility] * CBC with platelet and differential (12/12/2018 2:30 PM CDT) WBC 4.75 4.50 - 11.00 k/uL [facility] RBC 4.78 4.20 - 5.50 m/uL [facility] HGB 13.7 12.0 - 16.0 g/dL [facility] HCT 43.2 37.0 - 47.0 % [facility] MCV 90.4 82.0 - 100.0 fL [facility] MCH 28.7 27.0 - 34.0 pg [facility] MCHC 31.7 31.0 - 37.0 g/dL [facility] RDW - SD 43.2 37.0 - 55.0 fL [facility] MPV 9.8 8.8 - 13.2 fL [facility] Platelet count 243 150 - 400 k/uL [facility] Nucleated RBC 0.00 /100 WBC [facility] Neutrophils 53.8 39.0 - 69.0 % [facility] Lymphocytes 29.7 25.0 - 45.0 % [facility] Monocytes 9.7 0.0 - 10.0 % [facility] Eosinophils 5.3 (H) 0.0 - 5.0 % [facility] Basophils 1.3 (H) 0.0 - 1.0 % [facility] Specimen Blood Performing Organization Address City/State/Zipcode [place] [address] [place] [address] PATHOLOGY AND GENOMIC MEDICINE [facility] [address] * Comprehensive metabolic panel (12/12/2018 2:30 PM CDT) Sodium 142 135 - 148 mEq/L [facility] Potassium 4.8 3.5 - 5.0 mEq/L [facility] Chloride 105 98 - 112 mEq/L [facility] CO2 28 24 - 31 mEq/L [facility] Anion gap 9@ANIO 7 - 15 mEq/L [facility] BUN 12 8 - 23 mg/dL [facility] Creatinine 0.70 0.50 - 0.90 mg/dL [facility] Glucose 106 (H) 65 - 99 mg/dL [facility] Calcium 9.9 8.8 - 10.2 mg/dL [facility] Protein 7.1 6.3 - 8.3 g/dL [place] Comment: [facility] 4.6-7.0 g/dL 1 week 4.4-7.6 g/dL 7 months-1year 5.1-7.3 g/dL 1-2 years5.6-7 .5 g/dL >3 years6.0-8 .0 g/dL 18-150 6.3-8.3 g/dL Albumin 4.5 3.5 - 5.0 g/dL [facility] A/G ratio 1.7 0.7 - 3.8 [facility] Alkaline 109 (H) 35 - 104 U/L [place] phosphatase [facility] AST 15 10 - 35 U/L [facility] ALT 17 5 - 50 U/L [facility] Total bilirubin 0.3 0.0 - 1.2 mg/dL [facility] Specimen Plasma specimen Performing Organization Address City/[facility]/Zipcode [place] [address] [place] [address] PATHOLOGY AND GENOMIC MEDICINE [facility] [address] * ECG 12 lead (12/12/2018 2:29 PM CDT) Ventricular 90 [facility] rate Atrial rate 90 [facility] SC interval 132 [facility] QRSD interval 78 [facility] QT interval 382 [facility] QTC interval 467 [facility] P axis 1 54 [facility] QRS axis 1 9 [facility] T wave axis 29 [facility] MUSE EKG impression Normal sinus rhythm-Normal [facility] MUSE ECG-No previous ECGs available- Specimen Narrative Performed At Performing Organization Address City/[facility] Cent[facility]ode Phone Number [facility] MUSE [address] [place] [address] * US Breast External Study (11/06/2018 2:11 PM CDT) Only the most recent of 4 results within the time period is included. Specimen Narrative Performed At [facility] This exam was not acquired at a [facility] facility and has not been interpreted by a [facility] Provider.The exam was imported into our imaging system for comparisons purposes. Performing Organization Address City/[facility]/Zipcode Phone Number [facility] [address] [place] [address] * Mammo External Study (04/16/2018 3:02 PM NECKTIES PAINTER) Specimen Narrative Performed At This exam was not acquired at a [facility] facility and has not been [facility] interpreted by a Confucian[employer] Provider.The exam was imported into our imaging system for comparisons purposes. Performing Organization Address [facility] Phone Number [facility] [address] [place] [address] after 02/04/2018 Insurance Type Payer Benefit Subscriber ID Effective Phone Address Plan / Dates Group HMO TEXANPLUS TEXANPLUS xxxxxxxxx [id number] majano Advance Directives For more information, please contact: [phone] Patient Core Blower Operator Explanation Type Date Recorded Advance Directives, Living Will and Medical Power of Racquet Maker
[2019-02-05 18:02] LABS: BASOPHILS % 1.1 % (0.0-1.0); EOSINOPHILS # (AUTO) 0.2 (0.0-0.4); HEMATOCRIT 36.7 % (34.2-44.1); HEMOGLOBIN 12.2 g/dL (12.0-16.0); LYMPHOCYTES # (AUTO) 1.1 (1.0-3.2); LYMPHOCYTES % 28.8 % (18.0-39.1); MEAN CORPUSCULAR HEMOGLOBIN 28.9 pg (28-32); MEAN CORPUSCULAR HGB CONC 33.2 g/dL (31-35); MONOCYTES # (AUTO) 0.4 (0.2-0.8); MONOCYTES % 10.2 % (4.4-11.3); NEUTROPHILS # (AUTO) 2.1 (2.1-6.9); NEUTROPHILS % 55.6 % (38.7-80.0); PLATELET COUNT 256 x10e3/uL (140-360); RED BLOOD COUNT 4.22 x10e6/uL (3.6-5.1); RED CELL DISTRIBUTION WIDTH 12.8 % (11.7-14.4)
[2019-02-05 18:09] LABS: INR 0.86; PROTHROMBIN TIME 12.2 seconds (11.9-14.5)
[2019-02-05 18:10] LABS: PARTIAL THROMBOPLASTIN TIME 26.5 seconds (23.8-35.5)
[2019-02-05 18:18] LABS: ALANINE AMINOTRANSFERASE 14 IU/L (0-55); ALBUMIN 3.7 g/dL (3.5-5.0); ALBUMIN/GLOBULIN RATIO 1.3 (0.8-2.0); ALKALINE PHOSPHATASE 108 IU/L (40-150); ANION GAP 12.4 mmol/L (8-16); BLOOD UREA NITROGEN 16 mg/dL (7-26); BUN/CREATININE RATIO 18 (6-25); CALCIUM 9.8 mg/dL (8.4-10.2); CARBON DIOXIDE 27 mmol/L (22-29); CHLORIDE 104 mmol/L (98-107); CREATINE KINASE 26 IU/L (29-168); EST GLOMERULAR FILTRATION RATE > 60 ML/MIN (60-); GLUCOSE 92 mg/dL (74-118); POTASSIUM 4.4 mmol/L (3.5-5.1); SODIUM 139 mmol/L (136-145)
--- NOTE | 2019-02-05 19:04 | NUR ---
CALLED RADIOLOGY REGARDING NEED FOR CT TO BE DONE.
[2019-02-05] MEDS ORDERED: SODIUM CHLORIDE 0.9% 1000ML 1,000 ML IV STA (19:20)
--- NOTE | 2019-02-05 19:41 | Diagnostic Imaging Report ---
EXAMINATION: Head CT without contrast. HISTORY:Left facial droop and numbness. COMPARISON:Report of CT brain from 09/08/2009, prior images are not available for comparison at the time of interpretation. TECHNIQUE: Multidetector axial images were obtained from the foramen magnum to the vertex without contrast. The images were reconstructed using brain and bone algorithms. Thin section brain images were reformatted into coronal and sagittal planes. Dose modulation, iterative reconstruction, and/or weight based adjustment of the mA/kV was utilized to reduce the radiation dose to as low as reasonably achievable. Intravenous contrast: None IMAGE QUALITY: Acceptable. FINDINGS: Skull/scalp: No lytic or blastic. lesions. No surgical changes. Parenchyma: Nonspecific few, scattered supratentorial white matter hypodensity are likely related to small vessel ischemic changes. No acute hemorrhage, mass or acute major vascular territorial infarct. Arteries: No density suggestive of thrombosis. Dural sinuses: No abnormal density suggestive of thrombosis. Ventricles: Mild compensated dilatation due to volume loss. No hydrocephalus. Extra-axial spaces: No abnormal density. Brain volume: Mild generalized cerebral and moderate cerebellar volume loss. Craniocervical junction: No mass, Chiari malformation, or basilar invagination. Sella: No mass. Paranasal/mastoid sinuses: Imaged portions unremarkable. IMPRESSION: 1. No acute intracranial abnormality. 2. Mild supratentorial white matter microvascular ischemic changes. 3. Mild generalized cerebral and moderate cerebellar volume loss. Signed by: Dr. Mica Barlow M.D. on 02/05/2019 7:38 PM
--- NOTE | 2019-02-05 19:43 | Diagnostic Imaging Report ---
A single frontal view of the chest. HISTORY: Left facial numbness, weakness COMPARISON: Chest radiograph May 16, 2018. DISCUSSION: Portable technique, limits sensitivity of the exam. Soft tissue attenuation partially limits sensitivity of the exam. LINES/TUBES: Left chest wall subclavian approach chest port again seen. LUNGS: No consolidations or edema. PLEURA: No pneumothorax. HEART AND MEDIASTINUM: Normal size and contour. Calcification within the aortic knob. Curvilinear opacity superior to the gastroesophageal junction. BONES AND SOFT TISSUES: Bilateral breast implants. IMPRESSION: 1. No acute radiographic abnormality. 2. No significant interval change. 3. Probable hiatal hernia. Signed by: Dr. Elpidio Justice D.O., M.M.M. on 02/05/2019 7:40 PM
[2019-02-05 22:21] VITALS: BP 117/81
== END 2019-02-05 22:30 | disposition home or self-care (01) ==
LOC: ER 17:12
DX: G51.0 Bell's palsy (principal)
CPT/HCPCS: 36415; 70450; 71045; 80053; 82550; 82553; 83735; 84484; 85025; 85610; 85730; 93005; 99284

== ENCOUNTER 2019-11-10 19:39 | Emergency (ER) | payer MEDICARE, OTHER ==
[~2019-11-10] VITALS: Ht 160 cm; Wt 83.9 kg
[2019-11-10 21:49] LABS: BASOPHILS % 0.6 % (0.0-1.0); EOSINOPHILS % 0.8 % (0.0-6.0); HEMATOCRIT 41.5 % (34.2-44.1); HEMOGLOBIN 12.6 g/dL (12.0-16.0); LYMPHOCYTES # (AUTO) 1.1 (1.0-3.2); LYMPHOCYTES % 20.8 % (18.0-39.1); MEAN CORPUSCULAR HEMOGLOBIN 25.8 pg (28-32); MEAN CORPUSCULAR HGB CONC 30.4 g/dL (31-35); MEAN CORPUSCULAR VOLUME 84.9 fL (81-99); MONOCYTES # (AUTO) 0.4 (0.2-0.8); MONOCYTES % 8.4 % (4.4-11.3); NEUTROPHILS # (AUTO) 3.5 (2.1-6.9); NEUTROPHILS % 69.2 % (38.7-80.0); PLATELET COUNT 281 x10e3/uL (140-360); RED BLOOD COUNT 4.89 x10e6/uL (3.6-5.1)
[2019-11-10 22:09] LABS: ALANINE AMINOTRANSFERASE 66 IU/L (0-55); ALBUMIN 4.1 g/dL (3.5-5.0); ALBUMIN/GLOBULIN RATIO 1.4 (0.8-2.0); ALKALINE PHOSPHATASE 116 IU/L (40-150); ANION GAP 13.5 mmol/L (8-16); BLOOD UREA NITROGEN 17 mg/dL (7-26); BUN/CREATININE RATIO 19 (6-25); CALCIUM 10.2 mg/dL (8.4-10.2); CARBON DIOXIDE 24 mmol/L (22-29); CHLORIDE 105 mmol/L (98-107); CREATINE KINASE 41 IU/L (29-168); EST GLOMERULAR FILTRATION RATE > 60 ML/MIN (60-); GLUCOSE 98 mg/dL (74-118); POTASSIUM 4.5 mmol/L (3.5-5.1); SODIUM 138 mmol/L (136-145)
--- NOTE | 2019-11-10 22:14 | Diagnostic Imaging Report ---
EXAMINATION: CHEST SINGLE (PORTABLE) INDICATION: Shortness of breath COMPARISON: None FINDINGS: AP view TUBES and LINES: Left chest port. LUNGS: Low lung volumes. Hazy opacity of the lung bases. PLEURA: Questionable small bilateral pleural effusions. HEART AND MEDIASTINUM: The cardiomediastinal silhouette is unremarkable. The pulmonary structures prominent. BONES AND SOFT TISSUES: No acute osseous lesion. Soft tissues are unremarkable. UPPER ABDOMEN: No free air under the diaphragm. IMPRESSION: Central pulmonary venous congestion. Questionable small bilateral pleural effusions. Hazy opacity of the lung bases may represent a combination of atelectasis and soft tissue attenuation. Signed by: Neymar Masters MD on 11/10/2019 10:11 PM
--- NOTE | 2019-11-10 22:46 | Diagnostic Imaging Report ---
EXAM: CT Chest WITH contrast 11/10/2019 10:24 PM INDICATION: Shortness of breath COMPARISON: None TECHNIQUE: Chest was scanned utilizing a multidetector helical scanner from the lung apex through the level of the adrenal glands without administration of IV contrast. Coronal and sagittal reformations were obtained. Routine protocol was performed. IV CONTRAST: 100 mL of Omnipaque 300 COMPLICATIONS: None RADIATION DOSE: Total DLP: 423 mGy*cm Estimated effective dose: (DLP x 0.014 x size factor) mSv CTDIvol has been reviewed. It is below the limits set by the Radiation Protocol Committee (RPC). Dose modulation, iterative reconstruction, and/or weight based adjustment of the mA/kV was utilized to reduce the radiation dose to as low as reasonably achievable. FINDINGS: LINES/ TUBES: Left chest port. LUNGS AND AIRWAYS: Ill-defined bibasilar groundglass opacities and wedge-shaped consolidation, likely atelectasis. PLEURA: Bilateral pleural effusions, moderate right and small left. HEART AND MEDIASTINUM: The thyroid gland is normal. Prominent subcentimeter mediastinal lymph nodes. The heart is normal in size. There is no pericardial effusion. VESSELS: No pulmonary artery filling defect to the subsegmental pulmonary artery branches. No evidence of right heart strain. The main pulmonary artery is mildly dilated and measures 3.6 cm in maximum dimension. The central pulmonary vasculature is prominent. Reflux of contrast into the hepatic veins. UPPER ABDOMEN: Grossly unremarkable. BONES: The visualized bony thorax is within normal limits. SOFT TISSUES: Bilateral breast implants. IMPRESSION: 1. No pulmonary embolus. 2. Bilateral pleural effusions and central pulmonary venous congestion. Findings are suggestive of heart failure. 3. Dilated pulmonary artery trunk. This may be seen with pulmonary arterial hypertension. Signed by: Neymar Masters MD on 11/10/2019 10:43 PM
[2019-11-10] MEDS ORDERED: SODIUM CHLORIDE 0.9% 50ML 50 ML ONE (22:56)
[2019-11-10] MEDS ORDERED: IOPAMIDOL 370 MG/ML 200 ML INFUS..BTL INJ ONE (22:57)
[2019-11-11] MEDS ORDERED: FUROSEMIDE INJ 10 MG/ML 4 ML VIAL IV ONE
--- NOTE | 2019-11-11 00:19 | Emergency Department Note ---
History of Present Illnes History of Present Illness Chief Complaint: Respiratory History of Present Illness This is a 74 year old female arrived to the ED with complaints of cough and shortness of breath.. Chief Complaint Comment PATIENT IN FROM HOME WITH COMPLAINTS OF SHORTNESS OF BREATH SINCE YESTERDAY, DENIES PAIN, COUGH, DIFFICULTY BREATHING. PATIENT WITH HISTORY OF BREAST CANCER. PATIENT APPEARS IN NO DISTRESS, O2 SATS 95% ON ROOM AIR Historian: Patient Arrival Mode: Car Telecom Coordinator Required: No Onset (how long ago): day(s) Severity: mild Timing of current episode: constant Progression: worsening Relieving factors: none Past Medical/Family History Physician Review I have reviewed the patient's past medical and family history. Any updates have been documented here. Past Medical History Recent Fever: No Clinical Suspicion of Infectio: No New/Unexplained Change in Ment: No Past Medical History: Cancer Other Medical History: BELLS PALSY STAGE 4 BREAST CA Past Surgical History: Hysterectomy, Mastectomy Other Surgery: DOUBLE MASTECTOMY WRIST AND ANKLE SURGERY Social History Smoking Cessation: Former smoker Counseling Performed: No Alcohol Use: None Any Illegal Drug Use: No TB Exposure/Symptoms: No Physically hurt or threatened: No Family History Family history of heart diseas: No Other Last Tetanus: OOD Any Pre-Existing Lines (PICC,: No Is patient up to date on immun: Yes Last Flu: utd Last Pneumovax: utd Review of Systems Review of Systems Constitutional: Reports no symptoms EENTM: Reports no symptoms Cardiovascular: Reports no symptoms Respiratory: Reports as per HPI Gastrointestinal: Reports no symptoms Genitourinary: Reports no symptoms Musculoskeletal: Reports no symptoms Integumentary: Reports no symptoms Neurological: Reports no symptoms Psychological: Reports no symptoms Endocrine: Reports no symptoms Hematological/Lymphatic: Reports no symptoms Physical Exam Related Data Allergies: Coded Allergies: No Known Allergies (Verified , 09/08/09) Triage Vital Signs Vital Signs Date Time Temp Pulse Resp B/P (MAP) Pulse Ox O2 Delivery O2 Flow Rate FiO2 11/10/19 20:07 97.9 120 22 172/81 95 Vital signs reviewed: Yes Physical Exam CONSTITUTIONAL Constitutional: Present well-developed, Present well-nourished HENT HENT: Present normocephalic, Present atraumatic, Present oropharynx clear/m oist, Present nose normal HENT L/R: Present left ext ear normal, Present right ext ear normal EYES Eyes: Reports PERRL, Reports conjunctivae normal NECK Neck: Present ROM normal PULMONARY Pulmonary: Present effort normal, Present respiratory distress CARDIOVASCULAR Cardiovascular: Present irregular rhythm, Present capillary refill normal, Present normal rate, Present tachycardia GASTROINTESTINAL Abdominal: Present soft, Present nontender, Present bowel sounds normal GENITOURINARY Genitourinary: Present exam deferred SKIN Skin: Present warm, Present dry MUSCULOSKELETAL Musculoskeletal: Present ROM normal NEUROLOGICAL Neurological: Present alert, Present oriented x 3, Present no gross motor or sensory deficits PSYCHOLOGICAL Psychological: Present mood/affect normal, Present judgement normal Results Laboratory Result Diagram: 11/10/19212011/10/192120 Laboratory Laboratory Tests Test 11/10/19 21:21 White Blood Count 5.10 x10e3/uL (4.8-10.8) Red Blood Count 4.89 x10e6/uL (3.6-5.1) Hemoglobin 12.6 g/dL (12.0-16.0) Hematocrit 41.5 % (34.2-44.1) Mean Corpuscular Volume 84.9 fL (81-99) Mean Corpuscular Hemoglobin 25.8 pg (28-32) Mean Corpuscular Hemoglobin Concent 30.4 g/dL (31-35) Red Cell Distribution Width 20.0 % (11.7-14.4) Platelet Count 281 x10e3/uL (140-360) Neutrophils (%) (Auto) 69.2 % (38.7-80.0) Lymphocytes (%) (Auto) 20.8 % (18.0-39.1) Monocytes (%) (Auto) 8.4 % (4.4-11.3) Eosinophils (%) (Auto) 0.8 % (0.0-6.0) Basophils (%) (Auto) 0.6 % (0.0-1.0) Neutrophils # (Auto) 3.5 (2.1-6.9) Lymphocytes # (Auto) 1.1 (1.0-3.2) Monocytes # (Auto) 0.4 (0.2-0.8) Eosinophils # (Auto) 0.0 (0.0-0.4) Basophils # (Auto) 0.0 (0.0-0.1) Absolute Immature Granulocyte (auto 0.01 x10e3/uL (0-0.1) Sodium Level 138 mmol/L (136-145) Potassium Level 4.5 mmol/L (3.5-5.1) Chloride Level 105 mmol/L (98-107) Carbon Dioxide Level 24 mmol/L (22-29) Anion Gap 13.5 mmol/L (8-16) Blood Urea Nitrogen 17 mg/dL (7-26) Creatinine 0.90 mg/dL (0.57-1.11) Estimat Glomerular Filtration Rate > 60 ML/MIN (60-) BUN/Creatinine Ratio 19 (6-25) Glucose Level 98 mg/dL (74-118) Calcium Level 10.2 mg/dL (8.4-10.2) Total Bilirubin 0.6 mg/dL (0.2-1.2) Aspartate Amino Transf (AST/SGOT) 34 IU/L (5-34) Alanine Aminotransferase (ALT/SGPT) 66 IU/L (0-55) Alkaline Phosphatase 116 IU/L (40-150) Creatine Kinase 41 IU/L (29-168) Creatine Kinase MB 2.40 ng/mL (0-5.0) Troponin I 0.033 ng/mL (0-0.300) Total Protein 7.0 g/dL (6.5-8.1) Albumin 4.1 g/dL (3.5-5.0) Globulin 2.9 g/dL (2.3-3.5) Albumin/Globulin Ratio 1.4 (0.8-2.0) Lab results reviewed: Yes Imaging Imaging results reviewed: Yes Procedures 12 Lead ECG Interpretation ECG Interpretation : Telecom Coordinator: Interpreted by ED physician Prior ECG tracings: reviewed Rhythm: sinus tachycardia QRS axis: normal ST segments normal: Yes T waves normal: Yes Other findings: no other findings Clinical Impression: normal ECG Critical Care Time Total Critical Care Time (min): 45 Critical care time exclusive o: separately billable procedures Critcal care necessary due to: cardiac failure Comments Patient required amiodarone drip for stabilization of irregular heartbeat Assessment & Plan Medical Decision Making MDM 74-year-old female arrived to the ED with complaints of shortness of breath. Patient's chest x-ray showed bilateral pleural effusions. Patient noted to be tachycardic with concerns of new onset H of fibrillation. Patient the history of breast cancer and there was suspicion of possible pulmonary embolus area CT chest revealed no PE but was concerning for bilateral pleural effusions as well as pulmonary vascular congestion. Patient required hospital admission for newly diagnosed CHF and atrial fibrillation. Pt placed on amiodarone drip and bolus Patient elevated heart rate was secondary to new onset A. fib and not an underlying infectious etiology at time of admission Assessment & Plan Final Impression: (1) CHF (congestive heart failure) (2) Pleural effusion Depart Disposition: ADMITTED Last Vital Signs Date Time Temp Pulse Resp B/P (MAP) Pulse Ox O2 Delivery O2 Flow Rate FiO2 11/10/19 23:30 127 18 125/99 98 11/10/19 20:07 97.9 Home Meds No Active Prescriptions or Reported Meds Medications in the ED Sodium Chloride 50 ml @ ud STK-MED ONCE .ROUTE ; Start 11/10/19 at 22:56; Stop 11/10/19 at 22:50; Status DC Iopamidol 74,000 mg STK-MED ONCE INJ ; Start 11/10/19 at 22:57; Stop 11/10/19 at 22:50; Status DC Furosemide 40 mg ONCE ONCE IV ; Start 11/11/19 at 00:00; Stop 11/11/19 at 00:02; Status DC CHRIS SMITH DO Nov 11, 2019 00:19
[2019-11-11] MEDS ORDERED: DILTIAZEM HCL 5 MG/ML 5 ML VIAL IV STA (01:28)
[2019-11-11] MEDS ORDERED: DIGOXIN INJ 0.25 MG/ML 2 ML AMP IV ONE (01:30)
[2019-11-11] MEDS ORDERED: DIGOXIN INJ 0.25 MG/ML 2 ML AMP ONE (01:40)
[2019-11-11] MEDS ORDERED: AMIODARONE HCL 150 MG/100 ML BAG IV ONE (03:30)
[2019-11-11] MEDS ORDERED: AMIODARONE HCL 900 MG in DEXTROSE 5% 500ML 500 ML IV PRN (04:15)
[2019-11-11] MEDS ORDERED: AMIODARONE 900MG 500 ML IV ONE (04:26)
[2019-11-11] MEDS: AMIODARONE HCL 150MG 100 ML IV ONE ×2 (04:42→08:45)
[2019-11-11] MEDS: AMIODARONE HCL 360MG 200 ML IV SCH ×2 (04:43→04:44)
--- NOTE | 2019-11-11 08:00 | NUR ---
[facility] CALLED FOR TRANSPORT
--- NOTE | 2019-11-11 08:41 | NUR ---
TRANSFER HELD, PENDING COVID REDSULTS
[2019-11-11] MEDS ORDERED: AMIODARONE HCL 360MG 200 ML IV SCH (10:30)
[2019-11-11 13:24] VITALS: BP 100/76
== END 2019-11-11 13:29 | disposition other institution (70) ==
LOC: ER 11-11 00:07 → UNDOADMIN 11-11 01:28 → ERHOLD 11-11 01:28
DX: I50.9 Heart failure, unspecified (principal); J90 Pleural effusion, not elsewhere classified; R06.02 Shortness of breath; R05 Cough; Z11.59 Encounter for screening for other viral diseases; Z85.3 Personal history of malignant neoplasm of breast
CPT/HCPCS: 36415 ×2; 71045; 71260; 80053; 82550 ×2; 82553 ×2; 84484 ×2; 85025; 87635; 93005 ×2; 99284; J1160; J1940; Q9967

== ENCOUNTER 2024-08-10 12:49 | Inpatient (IN) | payer MEDICARE ==
[~2024-08-10] VITALS: Ht 160 cm; Wt 83.9 kg
[2024-08-10] VITALS (7 sets, daily range): BP systolic 94–121; BP diastolic 46–77; PULSE 102–124; RESP 17–18; TEMP 97.8–98.4; O2SAT 98–100
[2024-08-10] MEDS ORDERED: Morphine 2mg Syringe 2 MG/ML SYR IV PRN (13:30)
[2024-08-10 14:03] LABS: BASOPHILS % 0.8 % (0.0-1.0); EOSINOPHILS # (AUTO) 0.1 (0.0-0.4); EOSINOPHILS % 1.8 % (0.0-6.0); LYMPHOCYTES # (AUTO) 0.5 (1.0-3.2); LYMPHOCYTES % 10.5 % (18.0-39.1); MEAN CORPUSCULAR HEMOGLOBIN 18.1 pg (28-32); MEAN CORPUSCULAR HGB CONC 27.1 g/dL (31-35); MEAN CORPUSCULAR VOLUME 66.9 fL (81-99); MONOCYTES # (AUTO) 0.4 (0.2-0.8); MONOCYTES % 7.1 % (4.4-11.3); NEUTROPHILS % 79.6 % (38.7-80.0); PLATELET COUNT 424 x10e3/uL (140-360); RED BLOOD COUNT 2.87 x10e6/uL (3.6-5.1); RED CELL DISTRIBUTION WIDTH 17.1 % (11.7-14.4); WHITE BLOOD COUNT 5.07 x10e3/uL (4.8-10.8)
[2024-08-10 14:08] LABS: HEMATOCRIT 19.2 % (34.2-44.1); HEMOGLOBIN 5.2 g/dL (12.0-16.0)
[2024-08-10 14:34] LABS: ALBUMIN 3.8 g/dL (3.5-5.0); ALBUMIN/GLOBULIN RATIO 1.3 (0.8-2.0); ANION GAP 14.7 mmol/L (8-16); BILIRUBIN,TOTAL 0.6 mg/dL (0.2-1.2); CALCIUM 9.1 mg/dL (8.4-10.2); CREATININE, SERUM 1.15 mg/dL (0.57-1.11); POTASSIUM 3.7 mmol/L (3.5-5.1); TOTAL PROTEIN 6.7 g/dL (6.5-8.1)
[2024-08-10 14:40] LABS: TROPONIN I 0.017 ng/mL (0-0.300)
[2024-08-10] MEDS: SODIUM CHLORIDE 0.9% 250ML 250 ML IV ONE (17:09)
[2024-08-10] MEDS: FUROSEMIDE INJ 10 MG/ML 2 ML VIAL IV PRN (20:34)
[2024-08-10] MEDS ORDERED: FUROSEMIDE40 MG PO (22:06)
[2024-08-10] MEDS ORDERED: ARIMIDEX1 MG PO (22:06)
[2024-08-10] MEDS ORDERED: METOPROLOL SUCC25 MG PO (22:06)
[2024-08-11] VITALS (56 sets, daily range): BP systolic 82–121; BP diastolic 50–87; PULSE 52–149; RESP 11–31; TEMP 98–98.2; O2SAT 74–100
[2024-08-11 07:01] LABS: BASOPHILS # (AUTO) 0.1 (0.0-0.1); BASOPHILS % 1.2 % (0.0-1.0); EOSINOPHILS # (AUTO) 0.2 (0.0-0.4); EOSINOPHILS % 3.7 % (0.0-6.0); HEMATOCRIT 26.9 % (34.2-44.1); LYMPHOCYTES # (AUTO) 0.8 (1.0-3.2); LYMPHOCYTES % 17.8 % (18.0-39.1); MEAN CORPUSCULAR HEMOGLOBIN 20.3 pg (28-32); MEAN CORPUSCULAR HGB CONC 28.6 g/dL (31-35); MEAN CORPUSCULAR VOLUME 70.8 fL (81-99); MONOCYTES # (AUTO) 0.4 (0.2-0.8); MONOCYTES % 10.2 % (4.4-11.3); NEUTROPHILS # (AUTO) 2.9 (2.1-6.9); NEUTROPHILS % 66.9 % (38.7-80.0); PLATELET COUNT 328 x10e3/uL (140-360); RED CELL DISTRIBUTION WIDTH 19.8 % (11.7-14.4); WHITE BLOOD COUNT 4.33 x10e3/uL (4.8-10.8)
[2024-08-11 07:10] LABS: HEMOGLOBIN 7.7 g/dL (12.0-16.0)
[2024-08-11] MEDS: SODIUM CHLORIDE 0.9% 250ML 250 ML ONE ×2 (07:18→14:39)
[2024-08-11 07:30] LABS: ALBUMIN 3.7 g/dL (3.5-5.0); ALBUMIN/GLOBULIN RATIO 1.3 (0.8-2.0); ANION GAP 14.5 mmol/L (8-16); BILIRUBIN,TOTAL 1.6 mg/dL (0.2-1.2); CREATININE, SERUM 1.11 mg/dL (0.57-1.11); POTASSIUM 3.5 mmol/L (3.5-5.1); TOTAL PROTEIN 6.6 g/dL (6.5-8.1)
[2024-08-11 07:31] LABS: CHOL/HDL RATIO 3.6 (3.0-3.6); MAGNESIUM 1.9 MG/DL (1.3-2.1); PHOSPHORUS 3.3 MG/DL (2.3-4.7)
[2024-08-11 07:48] LABS: CREATINE KINASE 28 IU/L (29-168)
[2024-08-11 07:55] LABS: THYROID STIMULATING HORMONE 2.133 uIU/mL (0.350-4.940)
[2024-08-11 07:58] LABS: TROPONIN I < 0.001 ng/mL (0-0.300)
[2024-08-11] MEDS ORDERED: METOPROLOL TARTRATE INJ 1 MG/ML VIAL IV PRN (08:45)
[2024-08-11] MEDS: FOLIC ACID 1 MG TAB PO SCH (09:57)
[2024-08-11] MEDS: ANASTROZOLE 1 MG TAB PO SCH (09:57)
[2024-08-11] MEDS: CYANOCOBALAMIN INJ 1,000 MCG/ML VIAL IM SCH (09:59)
[2024-08-11] MEDS: METOPROLOL TARTRATE 25 MG TAB PO SCH (09:59)
[2024-08-11 16:08] LABS: TROPONIN I 0.017 ng/mL (0-0.300)
[2024-08-11] MEDS: SODIUM FERRIC GLUCONATE COMPLX 125 MG in SODIUM CHLORIDE 0.9% 100 ML IV SCH (18:21)
[2024-08-11] MEDS ORDERED: IOPAMIDOL 370 MG/ML 100 ML INFUS..BTL INJ ONE (18:24)
[2024-08-11 18:26] LABS: FERRITIN 5.96 ng/mL (4.63-204.00)
[2024-08-12] VITALS (8 sets, daily range): BP systolic 86–115; BP diastolic 55–88; PULSE 40–112; RESP 14–24; TEMP 97.7–98.6; O2SAT 95–100
[2024-08-12] MEDS: SODIUM CHLORIDE 0.9% 250ML 250 ML ONE (06:02)
[2024-08-12 06:32] LABS: BASOPHILS # (AUTO) 0.1 (0.0-0.1); BASOPHILS % 0.9 % (0.0-1.0); EOSINOPHILS # (AUTO) 0.3 (0.0-0.4); EOSINOPHILS % 4.5 % (0.0-6.0); HEMATOCRIT 28.9 % (34.2-44.1); LYMPHOCYTES # (AUTO) 0.8 (1.0-3.2); LYMPHOCYTES % 14.5 % (18.0-39.1); MEAN CORPUSCULAR HEMOGLOBIN 19.9 pg (28-32); MEAN CORPUSCULAR HGB CONC 27.7 g/dL (31-35); MEAN CORPUSCULAR VOLUME 71.9 fL (81-99); MONOCYTES # (AUTO) 0.6 (0.2-0.8); MONOCYTES % 11.1 % (4.4-11.3); NEUTROPHILS % 68.5 % (38.7-80.0); PLATELET COUNT 254 x10e3/uL (140-360); RED BLOOD COUNT 4.02 x10e6/uL (3.6-5.1); RED CELL DISTRIBUTION WIDTH 20.2 % (11.7-14.4); WHITE BLOOD COUNT 5.79 x10e3/uL (4.8-10.8)
[2024-08-12 07:05] LABS: ANION GAP 15.8 mmol/L (8-16); CALCIUM 9.1 mg/dL (8.4-10.2); CREATININE, SERUM 1.01 mg/dL (0.57-1.11); POTASSIUM 3.8 mmol/L (3.5-5.1)
[2024-08-12] MEDS: PEG (High)/E-LYTE SOLN 4,000 ML BTL PO ONE (16:56)
[2024-08-13] VITALS (14 sets, daily range): BP systolic 89–115; BP diastolic 42–78; PULSE 70–119; RESP 14–21; TEMP 97.7–98.8; O2SAT 92–99
[2024-08-13] MEDS ORDERED: PROPOFOL IV EMULSION 10 MG/ML 20 ML VIAL ONE (10:01)
[2024-08-13] MEDS ORDERED: LIDOCAINE HCL 2% LOCAL INJ 5 ML SDV VIAL INJ ONE (10:01)
[2024-08-13] MEDS ORDERED: PHENYLEPHRINE HCL 1% 10 MG/ML VIAL ONE (11:36)
[2024-08-13] MEDS: ACETAMINOPHEN 325 MG TAB PO PRN (18:28)
[2024-08-14] VITALS (28 sets, daily range): BP systolic 90–118; BP diastolic 46–79; PULSE 25–127; RESP 14–26; TEMP 97.8–98.8; O2SAT 95–100
[2024-08-14 06:49] LABS: BASOPHILS % 0.6 % (0.0-1.0); EOSINOPHILS # (AUTO) 0.1 (0.0-0.4); EOSINOPHILS % 1.8 % (0.0-6.0); HEMATOCRIT 25.7 % (34.2-44.1); LYMPHOCYTES # (AUTO) 0.8 (1.0-3.2); LYMPHOCYTES % 13.3 % (18.0-39.1); MEAN CORPUSCULAR HEMOGLOBIN 20.6 pg (28-32); MEAN CORPUSCULAR HGB CONC 28.8 g/dL (31-35); MEAN CORPUSCULAR VOLUME 71.6 fL (81-99); MONOCYTES # (AUTO) 0.7 (0.2-0.8); MONOCYTES % 11.2 % (4.4-11.3); NEUTROPHILS # (AUTO) 4.5 (2.1-6.9); NEUTROPHILS % 72.8 % (38.7-80.0); PLATELET COUNT 300 x10e3/uL (140-360); RED BLOOD COUNT 3.59 x10e6/uL (3.6-5.1); RED CELL DISTRIBUTION WIDTH 22.1 % (11.7-14.4); WHITE BLOOD COUNT 6.23 x10e3/uL (4.8-10.8)
[2024-08-14 06:57] LABS: HEMOGLOBIN 7.4 g/dL (12.0-16.0)
[2024-08-14 07:21] LABS: ANION GAP 13.7 mmol/L (8-16); CREATININE, SERUM 0.93 mg/dL (0.57-1.11); POTASSIUM 3.7 mmol/L (3.5-5.1)
[2024-08-14] MEDS ORDERED: ACETAMINOPHEN 325 MG TAB PO STA (09:11)
[2024-08-14] MEDS ORDERED: SODIUM CHLORIDE 0.9% 250ML 250 ML IV ONE (09:15)
[2024-08-14] MEDS ORDERED: FUROSEMIDE INJ 10 MG/ML 2 ML VIAL IV PRN (09:15)
[2024-08-14] MEDS ORDERED: DIPHENHYDRAMINE HCL INJ 50 MG/ML VIAL IV ONE (09:15)
[2024-08-14] MEDS: METOPROLOL TARTRATE 25 MG TAB PO SCH (09:15)
[2024-08-14] MEDS: ACETAMINOPHEN 325 MG TAB PO ONE (12:58)
[2024-08-14] MEDS: MIDODRINE HCL 5 MG TABLET PO SCH (12:58)
[2024-08-14] MEDS: SODIUM CHLORIDE 0.9% 250ML 250 ML IV ONE (12:59)
[2024-08-14] MEDS: DIPHENHYDRAMINE HCL INJ 50 MG/ML VIAL IV ONE (12:59)
[2024-08-15] VITALS (21 sets, daily range): BP systolic 85–108; BP diastolic 53–79; PULSE 43–125; RESP 15–29; TEMP 97.9–98.1; O2SAT 95–100
[2024-08-15 07:44] LABS: BASOPHILS # (AUTO) 0.1 (0.0-0.1); BASOPHILS % 0.7 % (0.0-1.0); EOSINOPHILS # (AUTO) 0.2 (0.0-0.4); EOSINOPHILS % 3.2 % (0.0-6.0); LYMPHOCYTES % 13.7 % (18.0-39.1); MEAN CORPUSCULAR HEMOGLOBIN 22.7 pg (28-32); MEAN CORPUSCULAR HGB CONC 30.3 g/dL (31-35); MONOCYTES # (AUTO) 0.8 (0.2-0.8); MONOCYTES % 10.6 % (4.4-11.3); NEUTROPHILS # (AUTO) 5.4 (2.1-6.9); NEUTROPHILS % 71.3 % (38.7-80.0); PLATELET COUNT 268 x10e3/uL (140-360); RED CELL DISTRIBUTION WIDTH 23.6 % (11.7-14.4); WHITE BLOOD COUNT 7.61 x10e3/uL (4.8-10.8)
[2024-08-15 08:17] LABS: CALCIUM 8.8 mg/dL (8.4-10.2); CREATININE, SERUM 0.89 mg/dL (0.57-1.11)
[2024-08-15] MEDS: ONDANSETRON HCL INJ 2MG/ML 2ML 2 MG/ML VIAL IV PRN (14:27)
== END 2024-08-15 18:24 | disposition home or self-care (01) | DRG 811 ==
LOC: ER 12:53 → ERHOLD 13:26 → MED/SURG 14:35 → OBSVTOIN 22:44 → ICU 08-11 00:31
PROVIDERS: ADMIT Internal Medicine; ATTEND Internal Medicine
PROC: 30233N1 Transfusion of Nonautologous Red Blood Cells into Peripheral Vein, Percutaneous Approach (ICD-10-PCS; 2024-08-10)
PROC: 0DJD8ZZ Inspection of Lower Intestinal Tract, Via Natural or Artificial Opening Endoscopic (ICD-10-PCS; 2024-08-13)
PROC: 0DB68ZX Excision of Stomach, Via Natural or Artificial Opening Endoscopic, Diagnostic (ICD-10-PCS; principal; 2024-08-13 11:08)
PROC: 0DB78ZX Excision of Stomach, Pylorus, Via Natural or Artificial Opening Endoscopic, Diagnostic (ICD-10-PCS; 2024-08-13 11:08)
DX: D50.9 Iron deficiency anemia, unspecified (principal); I11.0 Hypertensive heart disease with heart failure; I50.23 Acute on chronic systolic (congestive) heart failure; D51.9 Vitamin B12 deficiency anemia, unspecified; D75.839 Thrombocytosis, unspecified; K29.70 Gastritis, unspecified, without bleeding; R53.81 Other malaise; R00.0 Tachycardia, unspecified; K44.9 Diaphragmatic hernia without obstruction or gangrene; K64.8 Other hemorrhoids; K57.30 Diverticulosis of large intestine without perforation or abscess without bleeding; Z85.3 Personal history of malignant neoplasm of breast; Z90.710 Acquired absence of both cervix and uterus; Z90.13 Acquired absence of bilateral breasts and nipples
CPT/HCPCS: 36415; 43239; 45378; 71045; 71260; 74177; 80048; 80053; 80061; 82550; 82607; 82728; 82746; 83010; 83036; 83540; 83615; 83735; 84100; 84443; 84466; 84484; 85025; 86850; 86900; 86920; 88305; 93005; 93306; 94799; 99252; 99284; J1200; J1940; J2003; J2371; J2405; J2470; J2916; J3420; J7050; P9016; Q9967